=== PATIENT | male | born 1975 | race American Indian/Alaskan Native ===

== ENCOUNTER 2018-02-22 18:21 | Emergency (ER) | payer MEDICAID, OTHER ==
[2018-02-22 18:26] VITALS: BMI 44.6
--- NOTE | 2018-02-22 20:21 | ED PDOC ---
Arrival/HPI - General Chief Complaint: ENT Problem Time Seen by Provider: 02/22/18 19:58 Historian: Patient - History of Present Illness Narrative History of Present Illness (Text): 02/22/18 20:00 Miguelito Osorio is a 42 year old male, whose past medical history includes hypertension and hyperlipidemia, who presents to the Emergency department complaining of sore throat. Patient states he was eating an ice cream on a popsicle when a small piece of popsicle stick became lodged in his throat. Patient states he was able to cough it up, but reports he is still experiencing throat irritation and some foreign body sensation. Patient denies any shortness of breath, abdominal pain, vomiting, neck pain, headache, or any other complaints, Symptom Onset: Gradual Symptom Course: Unchanged Activities at Onset: Light Context: Home Past Medical History - Provider Review Nursing Documentation Reviewed: Yes - Infectious Disease Hx of Infectious Diseases: None - Psychiatric Hx Substance Use: No - Anesthesia Hx Anesthesia: No - Suicidal Assessment Feels Threatened In Home Enviroment: No Family/Social History - Physician Review Nursing Documentation Reviewed: Yes Family/Social History: Unknown Family HX Smoking Status: Unknown If Ever Smoked Hx Alcohol Use: No Hx Substance Use: No Allergies/Home Meds Allergies/Adverse Reactions: Allergies EGGPLANT Allergy (Intermediate, Uncoded 10/04/13 09:34) ITCHING Home Medications: Home Meds Medication Instructions Recorded Confirmed Pravastatin 40 mg PO DAILY 10/04/13 10/04/13 Vitamin D 1.25 mg PO QWK 10/04/13 10/04/13 Review of Systems - Physician Review All systems were reviewed & negative as marked: Yes - Review of Systems Constitutional: Normal. absent: Fevers Eyes: Normal ENT: Sore Throat Respiratory: Normal. absent: SOB, Cough Cardiovascular: Normal. absent: Chest Pain Gastrointestinal: Normal. absent: Abdominal Pain, Diarrhea, Nausea, Vomiting Genitourinary Male: Normal. absent: Dysuria, Frequency, Hematuria Musculoskeletal: Normal. absent: Back Pain, Neck Pain Skin: Normal. absent: Rash Neurological: Normal. absent: Headache, Dizziness Endocrine: Normal Hemo/Lymphatic: Normal Psychiatric: Normal Physical Exam Vital Signs Reviewed: Yes Vital Signs Temp Pulse Resp BP Pulse Ox 02/22/18 18:26 98.8 F 118 H 18 182/78 H 99 Temperature: Afebrile Blood Pressure: Hypertensive Pulse: Regular Respiratory Rate: Normal Appearance: Positive for: Well-Appearing, Non-Toxic, Comfortable Pain Distress: None Mental Status: Positive for: Alert and Oriented X 3 - Systems Exam Head: Present: Atraumatic, Normocephalic Pupils: Present: PERRL Extroacular Muscles: Present: EOMI Conjunctiva: Present: Normal Ears: Present: Normal, NORMAL TM, Normal Canal. No: Erythema Mouth: Present: Moist Mucous Membranes Pharnyx: Present: Normal. No: ERYTHEMA, EXUDATE, TONSILS ENLARGED, Peritonsilar Swelling, Uvular Deviation, Muffled/Hoarse Voice, Strider, Soft Palate/Uvular Edema Nose (External): Present: Atraumatic Nose (Internal): Present: Normal Inspection Neck: Present: Normal Range of Motion. No: Meningeal Signs, MIDLINE TENDERNESS, Paraspinal Tenderness Respiratory/Chest: Present: Clear to Auscultation, Good Air Exchange. No: Respiratory Distress, Accessory Muscle Use Cardiovascular: Present: Regular Rate and Rhythm, Normal S1, S2. No: Murmurs Abdomen: No: Tenderness, Distention, Peritoneal Signs Back: Present: Normal Inspection Upper Extremity: Present: Normal Inspection. No: Cyanosis, Edema Lower Extremity: Present: Normal Inspection. No: Edema Neurological: Present: GCS=15, CN II-XII Intact, Speech Normal Skin: Present: Warm, Dry, Normal Color. No: Rashes Psychiatric: Present: Alert, Oriented x 3, Normal Insight, Normal Concentration Medical Decision Making ED Course and Treatment: 02/22/18 20:00 Impression: 42 year old male complaining of throat irritation s/p foreign body sensation. Plan: -- CT Neck Soft Tissue -- Reassess and disposition Prior Visits: Notes and results from previous visits were reviewed. Progress Notes: 02/22/18 22:26 CT Neck Soft Tissue: The visualized paranasal sinuses are clear. The pterygopalatine fossa, pterygoid plates and pterygoid muscles are unremarkable. The mucosa of the naso- and oropharynx appears unremarkable. The hypopharynx and larynx show no pathology. The visualized osseous structures are intact. The airway is patent. No focal mass is appreciated. There is no evidence of lymphadenopathy. The thyroid gland appears unremarkable. The superficial soft tissues are unremarkable. Impression: Unremarkable CT examination of the soft tissues of the neck. There is no evidence of a radiopaque foreign body in the pharynx or upper airway. Electronically signed on Feb 22, 2018 10:18:07 PM EST by: Rom Aviles M.D., [place] Certified By [facility] [employer] [facility] Fellowship Trained MRI and CT Specialist 02/22/18 23:[address] Echevarria, ENT exceptional student education aide, who is aware and agrees with plan. States pt can f/u outpt in his office tomorrow. - RAD Interpretation Bilingual Research Interviewer: Radiologist - Scribe Statement The provider has reviewed the documentation as recorded by the Scribe Ruthy Linder All medical record entries made by the Scribe were at my direction and personally dictated by me. I have reviewed the chart and agree that the record accurately reflects my personal performance of the history, physical exam, medical decision making, and the department course for this patient. I have also personally directed, reviewed, and agree with the discharge instructions and disposition. Disposition/Present on Arrival - Present on Arrival Any Indicators Present on Arrival: No History of DVT/PE: No History of Uncontrolled Diabetes: No Urinary Catheter: No History of Decub. Ulcer: No History Surgical Site Infection Following: None - Disposition Have Diagnosis and Disposition been Completed?: Yes Diagnosis: Throat irritation Disposition: HOME/ ROUTINE Disposition Time: 23:19 Condition: STABLE Additional Instructions: Liquid diet tonight only/Follow up tommorow with ear/nose/throat doctor Referrals: Forrest Echevarria DO [Staff Provider] - Follow up with primary Forms: [employer] ([place] Islander), WORK NOTE
[2018-02-22 22:16] VITALS: RESP 17
[2018-02-22 23:38] VITALS: BP 138/91; PULSE 88; TEMP 98.2; O2SAT 100
--- NOTE | 2018-02-23 09:41 | CT ---
Date of service: 02/22/2018 PROCEDURE: CT NECK WITHOUT CONTRAST HISTORY: R/O FB left neck/swallowed ice cream stick COMPARISON: The TECHNIQUE: CT of the neck without intravenous contrast. Coronal and sagittal reformats generated. Radiation dose: Total exam DLP = 532.85 mGy-cm. This CT exam was performed using one or more of the following dose reduction techniques: Automated exposure control, adjustment of the mA and/or kV according to patient size, and/or use of iterative reconstruction technique. FINDINGS: NASOPHARYNX: Unremarkable. SUPRAHYOID NECK: There is mild enlargement of the palatine tonsils which encroach medially reducing the juni pharyngeal airway. In addition, there is also asymmetry of the vallecula which is likely due to some encroachment of lingual tonsils and possibly some residual/retained secretion., unremarkable retro pharyngeal and parapharyngeal spaces. Space and retropharyngeal space. INFRAHYOID NECK: Unremarkable larynx, hypopharynx, and supraglottic space. Vocal cords intact. MASS: None. GLANDS: Parotid and submandibular glands unremarkable. Normal size thyroid gland, without nodule. LYMPH NODES: There are multiple small scattered nonspecific bilateral cervical lymph nodes. [place]. CERVICAL SPINE: No fracture or focal lesion. OTHER FINDINGS: The visualized upper trachea is midline and patent. There are no radiopaque foreign bodies identified within the trachea or esophagus. Lung apices are clear.. Note made of old left orbital floor fracture through which a small amount of orbital fat has herniated. The IMPRESSION: Unremarkable non-contrast enhanced CT of the neck. No evidence of radiopaque foreign body seen.
== END 2018-02-22 23:38 | disposition home or self-care (01) ==
LOC: ED 18:21
DX: R07.0 Pain in throat (principal); E78.5 Hyperlipidemia, unspecified; I10 Essential (primary) hypertension

== ENCOUNTER 2018-02-23 11:52 | Emergency (ER) | payer MEDICAID ==
[2018-02-23 12:05] VITALS: BMI 52.2
--- NOTE | 2018-02-23 12:33 | ED PDOC ---
Arrival/HPI - General Historian: Patient - Critical Care Critical Care Minutes: 30 minutes - History of Present Illness Narrative History of Present Illness (Text): 02/23/18 12:29 42 year old male with a past medical history of hypertension and hyperlipidemia presents to the emergency department s/p mechanical fall at the library. Patient states he misplaced his foot and fell. Patient denies any chest pain or palpitations prior to falling. Patient reports hitting his head, left knee and left hand. He denies any loss of consciousness or bowel and bladder incontinence. Patient reports a severe headache and lightheadedness in conjunc tion with the presenting complaint. Patient denies any fevers, chills, nausea, vomiting, changes in vision, syncopal episodes, or any other complaints. PMD: Dr. Helms Past medical history : hypertension, hyperlipidemia Surgical history:Left orbit repair Medications: Amlodipine 5mg PO Daily, Atorvastatin 20mg PO HS Hospitalization: Left orbit repair Allergies; Eggplant Social history: Social drinker. Denies illict drugs. Time/Duration: 1 hour Symptom Onset: Sudden Symptom Course: Unchanged Quality: Throbbing Severity Level: 5 Activities at Onset: Other Context: Walking <Frantz May - Last Filed: 02/23/18 14:54> <Petty Hopson - Last Filed: 02/23/18 14:58> - General Chief Complaint: Trauma Time Seen by Provider: 02/23/18 11:55 Past Medical History - Provider Review Nursing Documentation Reviewed: Yes - Travel History Have you recently traveled outside [place] w/in the past 3 mons?: No - Infectious Disease Hx of Infectious Diseases: None - Cardiac Hx Cardiac Disorders: Yes - Pulmonary Hx Respiratory Disorders: No - Neurological Hx Neurological Disorder: No - HEENT Hx HEENT Disorder: No - Renal Hx Renal Disorder: No - Endocrine/Metabolic Hx Endocrine Disorders: No - Hematological/Oncological Hx Blood Disorders: No - Integumentary Hx Dermatological Disorder: No - Musculoskeletal/Rheumatological Hx Musculoskeletal Disorders: No - Gastrointestinal Hx Gastrointestinal Disorders: No - Genitourinary/Gynecological Hx Genitourinary Disorders: No - Psychiatric Hx Psychophysiologic Disorder: No Hx Substance Use: No - Anesthesia Hx Anesthesia: No - Suicidal Assessment Feels Threatened In Home Enviroment: No <Frantz May - Last Filed: 02/23/18 14:54> Family/Social History - Physician Review Nursing Documentation Reviewed: Yes Family/Social History: No Known Family HX Smoking Status: Unknown If Ever Smoked Hx Alcohol Use: No Hx Substance Use: No <Frantz May - Last Filed: 02/23/18 14:54> Allergies/Home Meds <Frantz May - Last Filed: 02/23/18 14:54> <AuraduanePetty - Last Filed: 02/23/18 14:58> Allergies/Adverse Reactions: Allergies EGGPLANT Allergy (Intermediate, Uncoded 02/23/18 12:14) ITCHING Home Medications: Home Meds Medication Instructions Recorded Confirmed Pravastatin 40 mg PO DAILY 10/04/13 10/04/13 Vitamin D 1.25 mg PO QWK 10/04/13 10/04/13 Review of Systems - Review of Systems Constitutional: Normal, Other (Sever headache). absent: Fatigue, Weight Change, Fevers, Night Sweats Eyes: Normal. absent: Vision Changes, Photophobia, Eye Pain ENT: Normal. absent: Hearing Changes, TMJ Pain, Epistaxis, Sinus Congestion Respiratory: Normal. absent: Sputum, Wheezing Cardiovascular: Normal. absent: Chest Pain, Palpitations, Syncope, Other Gastrointestinal: Normal. absent: Stool Changes, Constipation, Appetite Changes, Hematochezia Genitourinary Male: Normal. absent: Frequency, Hematuria Musculoskeletal: Back Pain, Other (Left knee pain, Left hand pain x 2 hours). absent: Arthralgias, Neck Pain Skin: Normal. absent: Rash, Pruritis, Skin Lesions Neurological: Normal. absent: Headache, Dizziness, Focal Weakness Endocrine: Normal. absent: Diaphoresis, Polyuria, Polydipsia Hemo/Lymphatic: Normal. absent: Adenopathy, Easy Bleeding, Easy Bruising Psychiatric: Normal. absent: Anxiety, Depression, Suicidal Ideation <Frantz May - Last Filed: 02/23/18 14:54> Physical Exam Vital Signs Reviewed: Yes Vital Signs Temp Pulse Resp BP Pulse Ox 02/23/18 12:05 98.6 F 99 H 18 156/111 H 98 Temperature: Afebrile Blood Pressure: Hypertensive Pulse: Tachycardic Respiratory Rate: Normal Appearance: Positive for: Well-Appearing, Non-Toxic, Comfortable. No: Ill- Appearing, Cachectic Pain Distress: Moderate Mental Status: Positive for: Alert and Oriented X 3. No: Confused, Agitated - Systems Exam Head: Present: Atraumatic, Normocephalic. No: Tenderness, Laceration Pupils: Present: PERRL. No: Sluggish, Non-Reactive Extroacular Muscles: Present: EOMI. No: Gaze Palsy Conjunctiva: Present: Normal. No: Injected Neck: Present: Normal Range of Motion. No: Meningeal Signs, JVD, Lymphadenopathy Respiratory/Chest: Present: Clear to Auscultation, Good Air Exchange, Accessory Muscle Use. No: Wheezes, Tachypneic Cardiovascular: Present: Normal S1, S2, Tachycardic. No: Bradycardic Abdomen: Present: Normal Bowel Sounds. No: Tenderness, Distention, McBurney's Point Tender Upper Extremity: Present: Normal Inspection, Cyanosis, Other ((-)Negative tenderness in Anatomical snuffbox appreciated upon palpation and ROM.). No: Edema, Swelling, Erythema, Temperature Abnormalties, Capillary Refill < 2s Lower Extremity: Present: Normal Inspection, Edema. No: Carolyn's Sign, Temperature Abnormalties Neurological: Present: CN II-XII Intact, Speech Normal. No: Norm Deep Tendon Reflexes, Gait Normal, Normal 2Pt Descrimination Skin: Present: Dry, Normal Color. No: Cold, Pale Psychiatric: Present: Oriented x 3, Normal Insight. No: Normal Mood, Anxious, Homicidal Ideation <Frantz May - Last Filed: 02/23/18 14:54> Vital Signs Temp Pulse Resp BP Pulse Ox 02/23/18 12:55 91 H 172/81 H 02/23/18 12:52 170/87 H 02/23/18 12:05 98.6 F 99 H 18 156/111 H 98 <Petty Hopson - Last Filed: 02/23/18 14:58> Medical Decision Making ED Course and Treatment: 02/23/18 12:37 Patient went for left knee, left hand and head ct imaging. Patient meets [place] Criteria for head ct. Patient given PO Tylenol for pain control. 02/23/18 12:45 Patient blood pressure elevated. Patient hasn't been compliant with blood pressure medication for the past two days. Amlodipine 5mg PO given. 02/23/18 12:53 02/23/18 13:[address] w/o contrast: No acute findings. 02/23/18 14:00 Knee Xray read:No definitive evidence of acute displaced fracture nor dislocation.. Suspect small suprapatellar joint effusion. Minor degenerative osteoarthritis the 02/23/18 14:02 Lumbar spine: No acute fractures. Minor degenerative spondylosis as detailed above Hand xray: Negative for acute fractures. 02/23/18 14:02 60mg IM Toradol and 5mg Valium administered. 02/23/18 14:03 - Critical Care Critical Care Minutes: 30 minutes - RAD Interpretation Radiology Orders: 02/23/18 12:23 HEAD W/O CONTRAST [CT] Stat 02/23/18 12:24 HAND LEFT 3 VIEWS ROUTINE [RAD] Stat KNEE LEFT 2 VIEWS (AP & LAT) [RAD] Stat Machine Iii Coremaker: ED Physician, Radiologist <Frantz May - Last Filed: 02/23/18 14:54> ED Course and Treatment: 02/23/18 14:45 Patient seen by resident and then evaluated by me. He had mechanical fall from slipping on wet floor. Complaining of head trauma and knee trauma with headache, back pain, knee pain, and hand "soreness." No midline pain. Neurolo gically intact and ambulated into ED. No blood thinner use. CT negative. Xrays negative. No anatomical snuff box tenderness or hand swelling or tenderness. Given knee immobilizer. Refusing crutches. Instructed to follow- up with orthopedics. 02/23/18 14:51 Patient Seen with Resident: In agreement with resident note which contains more details about the patient. Patient seen and evaluated with resident. Came up with plan and treatment together. Impression: 42 year old male who presents to the emergency department s/p mechanical fall earlier today. 02/23/18 14:56 02/23/18 14:57 - RAD Interpretation Radiology Orders: 02/23/18 12:23 HEAD W/O CONTRAST [CT] Stat 02/23/18 12:24 HAND LEFT 3 VIEWS ROUTINE [RAD] Stat KNEE LEFT 2 VIEWS (AP & LAT) [RAD] Stat 02/23/18 12:47 LS SPINE AP/LAT [RAD] Stat - Medication Orders Current Medication Orders: Discontinued Medications Acetaminophen (Tylenol 325mg Tab) 650 mg PO STAT STA Stop: 02/23/18 12:29 Last Admin: 02/23/18 12:55 Dose: 650 mg MAR Pain/Vitals Document 02/23/18 12:55 GMI (Rec: 02/23/18 12:55 GMI [id number]) Pain Reassessment Is This A Pain ReAssessment? Yes Sleep Is patient sleeping during reassessment? No Presence of Pain Presence of Pain Yes Amlodipine Besylate (Norvasc) 5 mg PO STAT STA Stop: 02/23/18 12:46 Last Admin: 02/23/18 12:55 Dose: 5 mg MAR Pulse and Blood Pressure Document 02/23/18 12:55 GMI (Rec: 02/23/18 12:55 GMI [id number]) Pulse Pulse Rate (60-90) 91 Blood Pressure Blood Pressure (100/60-150/90) 172/81 Diazepam (Valium) 5 mg PO STAT STA; Protocol Stop: 02/23/18 14:03 Ketorolac Tromethamine (Toradol) 60 mg IM STAT STA Stop: 02/23/18 14:03 <Petty Hopson - Last Filed: 02/23/18 14:58> - Scribe Statement The provider has reviewed the documentation as recorded by the Miriam Silveira Provider Scribe Attestation: All medical record entries made by the Scribe were at my direction and personally dictated by me. I have reviewed the chart and agree that the record accurately reflects my personal performance of the history, physical exam, medical decision making, and the department course for this patient. I have also personally directed, reviewed, and agree with the discharge instructions and disposition. <Petty Hopson - Last Filed: 02/23/18 14:58> Disposition/Present on Arrival - Present on Arrival Any Indicators Present on Arrival: No History of DVT/PE: No History of Uncontrolled Diabetes: No Urinary Catheter: No History of Decub. Ulcer: No History Surgical Site Infection Following: None - Disposition Have Diagnosis and Disposition been Completed?: Yes Disposition Time: 14:48 Patient Plan: Discharge <Frantz May - Last Filed: 02/23/18 14:54> <Petty Hopson - Last Filed: 02/23/18 14:58> - Disposition Diagnosis: Spondylosis, Accidental fall, Noncompliance with medication regimen, Elevated blood pressure reading Diagnosis: (Ruled Out): Accident due to mechanical fall without injury Disposition: HOME/ ROUTINE Patient Problems: Current Active Problems Problem Status Onset Spondylosis Acute Accidental fall Acute Condition: GOOD Discharge Instructions (ExitCare): Hypotension (ED), Hypertension (ED) Additional Instructions: 1. F/u with PMD within 5 to 7 days upon discharge. 2. Wear knee imobilizer upon discharge. 3. F/u with Orthopedics within 5 to 7 days upon discharge. 4. Return to hospital for any new or worsening symptoms. Referrals: Paco Helms MD [Primary Care Provider] - Follow up with primary Dev Koenig MD [Staff Provider] - Follow up with primary Forms: [employer] ([place])
--- NOTE | 2018-02-23 13:37 | CT ---
Date of service: 02/23/2018 PROCEDURE: CT HEAD WITHOUT CONTRAST. HISTORY: s/p mechanical fall COMPARISON: None available. TECHNIQUE: Axial computed tomography images were obtained through the head/brain without intravenous contrast. Radiation dose: Total exam DLP = 914.06 mGy-cm. This CT exam was performed using one or more of the following dose reduction techniques: Automated exposure control, adjustment of the mA and/or kV according to patient size, and/or use of iterative reconstruction technique. FINDINGS: HEMORRHAGE: No intracranial hemorrhage. BRAIN: No mass effect or edema. No atrophy or chronic microvascular ischemic changes. VENTRICLES: Unremarkable. No hydrocephalus. CALVARIUM: Unremarkable. PARANASAL SINUSES: Unremarkable as visualized. No significant inflammatory changes. MASTOID AIR CELLS: Unremarkable as visualized. No inflammatory changes. OTHER FINDINGS: None. IMPRESSION: No acute findings
--- NOTE | 2018-02-23 13:59 | RAD ---
Date of service: 02/23/2018 PROCEDURE: Radiographs of the Lumbar Spine. HISTORY: Status post mechanical fall COMPARISON: No prior. FINDINGS: BONES: No evidence of acute compression fractures no retropulsed fragments. Minor chronic anterior stature loss of several lower thoracic and upper lumbar segments likely developmental of. DISC SPACES: Minor multilevel degenerative spondylosis with small marginal anterolateral and tiny posterior osteophyte formation. Facets also slightly overgrown at the L5-S1 through the L3-L4 levels in decreasing order of severity. OTHER FINDINGS: None. IMPRESSION: No acute fractures. Minor degenerative spondylosis as detailed above
--- NOTE | 2018-02-23 14:01 | RAD ---
Date of service: 02/23/2018 PROCEDURE: Left Knee Radiographs. HISTORY: Pain. COMPARISON: None. FINDINGS: BONES: No definitive evidence of acute displaced fracture nor dislocation. The osseous structures appear intact. JOINTS: There minor posterior superior patellar osteophyte formation JOINT EFFUSION: Questionable small suprapatellar joint effusion. The OTHER FINDINGS: None. IMPRESSION: No definitive evidence of acute displaced fracture nor dislocation.. Suspect small suprapatellar joint effusion. Minor degenerative osteoarthritis the
[2018-02-23 15:06] VITALS: BP 129/53; PULSE 85; RESP 19; TEMP 98; O2SAT 99
--- NOTE | 2018-02-23 16:53 | RAD ---
PROCEDURE: Left Hand Radiographs. HISTORY: s/p mechanical fall COMPARISON: None. FINDINGS: BONES: Normal. No fracture. JOINTS: Normal. No osteoarthritic changes. SOFT TISSUES: Normal. OTHER FINDINGS: None. IMPRESSION: Normal left hand radiographs.
== END 2018-02-23 15:06 | disposition home or self-care (01) ==
LOC: ED 11:52
DX: Z04.3 Encounter for examination and observation following other accident (principal)
CPT/HCPCS: 70450; 72100; 73130; 73560; 96372; 99285; J1885